=== PATIENT | male | born 1980 | race Caucasian/White ===

== ENCOUNTER 2022-09-22 16:45 | Observation (INO) | payer MEDICAID, SELFPAY ==
[2022-09-22 16:46] VITALS: BP 135/98; PULSE 81; RESP 16; TEMP 36.6; O2SAT 98; BMI 27.0
--- NOTE | 2022-09-22 17:12 | EX.ED.SAOD ---
HPI History of Present Illness Chief Complaint: Substance Abuse Detail of Chief Complaint: Requesting detox for IV fentanyl abuse. Informant: patient Onset/Context/Timing Onset: - (Years.) Context: Gradual Onset Timing: Continuous Current Severity: Mild Maximum Severity: Mild Narrative Narrative: 42-year-old male no seen past medical history other than substance abuse. He does IV fentanyl and also abuses methamphetamine. He has not had detox for at least a year. Denies any recent illness or other past medical history. Prior similar symptoms: Yes Recent Illness/Hospitalization: No PFSH PFS Medical History Anxiety Depression Home Medications buprenorphine HCl 8 mg sublingual tablet 8 mg sublingual TID 09/22/22 [History Last Taken Unknown] gabapentin 800 mg tablet 800 mg PO Q6H 09/22/22 [History Last Taken Unknown] tadalafil 20 mg tablet (Cialis) 10 mg PO DAILY PRN Seizure Activity 09/22/22 [History Last Taken Unknown] Allergy/AdvReac Type Severity Reaction Status Date / Time No Known Allergies Allergy Verified 09/22/22 16:56 Social History Smoking Status: Current every day smoker tobacco type: cigarettes ROS ROS ED ROS Narrative Denies recent illness Review of Systems ROS Unobtainable: Denies due to encephalopathy Constitutional Constitutional ED: Denies chills or fever(s) Eyes Eyes: Denies blurry vision ENT ENT ED: Denies ear pain Cardiovascular Cardiovascular: Denies chest pain Respiratory/Chest Respiratory/Chest: Denies cough or dyspnea Gastrointestinal Gastrointestinal: Denies abdominal pain Genitourinary Genitourinary ED: Denies dysuria Musculoskeletal Musculoskeletal: Denies arthralgias Integumentary Denies abscess or Abrasions Neurologic Neurologic: Denies headache(s) Psychiatric Psychiatric: Denies anxiety Endocrine Endocrinology: Denies cold intolerance Hematologic/Lymphatic Hematologic/Lymphatic: Denies easy bleeding or easy bruising Allergic/Immunologic Allergic/Immunologic ED: Denies mouth swelling or tongue swelling EXAM Physical Exam Narrative Exam Narrative: 42-year-old male no acute distress. Vital signs stable afebrile. He does not look septic toxic or in any distress. H EENT exam unremarkable. Moist weeks membranes. Neck nontender no lymphadenopathy. Lungs clear to auscultation. Heart regular rhythm no murmur rate about 80. Chest wall nontender. Abdomen soft nontender. Back nontender. Moving all 4 extremities. Nontender no edema. No swelling or redness. He does have track greene in his left upper extremity. Nothing that appears infected at this time. No cellulitis nor abscess. Neurologically is awake alert with no focal motor deficits. Const Vital Signs: 09/22/22 16:46 Temperature 97.8 F Temperature Source Temporal Pulse Rate 81 Respiratory Rate 16 Blood Pressure 135/98 H Blood Pressure Mean 110 Pulse Ox 98 Oxygen Delivery Method Room Air Positive well nourished and well developed; Negative for obese, cachectic, contractures or unkempt General Appearance ED: well developed and NAD; Negative for unkempt, cachectic, contractures or pallor Nutritional Appearance: Negative for cachectic or obese HEENT Reports moist mucous membranes; Denies dry mucous membranes atraumatic; Negative for trauma or tenderness Mouth ED: No dry mucous membranes Mouth: No dry mucous membranes Eyes PERRL and EOMs intact bilaterally General Eye ED: Negative for pale conjunctiva or scleral icterus Neck no lymphadenopathy, supple and no JVD Thyroid: Negative for tender or other Lymph Lymphatic: no lymphadenopathy noted; Negative for lymphadenopathy or other Chest Wall inspection of chest normal and palpation of chest normal Chest: Negative for other Resp normal respiratory effort and clear to auscultation bilaterally Effort and Inspection: Negative for retractions Auscultation: Negative for rales, rhonchi or wheezes Cardio regular rate, regular rhythm, S1 normal heart sound, S2 normal heart sound and no murmurs Rate: Negative for bradycardia or tachycardic Rhythm: Negative for abnormal rhythm GI soft to palpation, non-tender, non-distended and no masses Inspection: Negative for abdominal distention Palpation: tender; Negative for guarding Back/Spine no CVA tenderness General Back: Negative for CVA tenderness Cervical Spine: Negative for cervical spine tenderness Thoracic Spine / Upper Back: Negative for thoracic spinal tenderness Lumbar Spine / Lower Back: Negative for lumbar spinal tenderness Coccyx: Negative for swelling Extremity Extremity Narrative: Track greene left arm. No cellulitis. No abscess. Nontender, normal range of motion no swelling. General Extremety ED: Negative for edema or tenderness General Extremity: Negative for edema Neuro oriented x3 and CN's II-XII intact bilaterally Sensorium / Orientation: alert, oriented to person, oriented to place and oriented to time; Negative for confused, lethargic or stuporous Speech: speech normal Motor Exam: strength 5/5 throughout Psych mental status grossly normal and thought process normal Appearance: Negative for unkempt Attitude: No belligerent, No agitated and No aggressive Mood & Affect: Negative for depressed, anxious or tearful Skin General Skin Exam: Negative for jaundice or pallor Lesions: no lesions Rashes: no rashes Trauma: Negative for abrasion MDM MDM MDM Narrative Medical decision making narrative: 42-year-old male requesting detox for IV fentanyl abuse. I spoke to the hospitalist he will be admitted. Screening labs have been obtained. History & Record Review Discussion w/independent historian: Patient Additional record(s) reviewed:: No prior records Lab Data Attestation: I reviewed the patient's lab results. Lab results narrative: CBC unremarkable. White count of 5. H&H 13 and 41. Platelets 220. CMP unremarkable gap of 8 normal BUN and creatinine. Liver enzymes unremarkable. Alcohol negative. Tox screen pending. PT and INR normal. Labs: Laboratory Results - last 24 hr 09/22/22 09/22/22 09/22/22 17:32 17:32 17:32 WBC 5.5 RBC 4.47 L Hgb 13.8 Hct 41.0 MCV 91.7 MCH 30.9 MCHC 33.7 RDW Std Deviation 40.9 RDW Coeff of Homar 12.4 Plt Count 220 MPV 9.0 Immature Gran % (Auto) 0.500 Neut % (Auto) 49.5 Lymph % (Auto) 36.9 [place] % (Auto) 9.1 Eos % (Auto) 3.1 Baso % (Auto) 0.9 Absolute Neuts (auto) 2.7 Absolute Lymphs (auto) 2.02 Nucleated RBC % 0 PT INR Sodium 140 Potassium 4.3 Chloride 106 Carbon Dioxide 26.0 Anion Gap 8 BUN 15 Creatinine 0.78 Estim Creat Clear Calc 120.85 Est GFR (MDRD) Af Amer 138 Est GFR (MDRD) Non-Af 114 BUN/Creatinine Ratio 19.1 Glucose 121 H Calcium 9.1 Total Bilirubin 0.20 AST 28 ALT 40 Alkaline Phosphatase 90 Total Protein 6.8 Albumin 3.7 Globulin 3.1 Albumin/Globulin Ratio 1.2 Ethyl Alcohol 6.0 05/22/23 17:32 WBC RBC Hgb Hct MCV MCH MCHC RDW Std Deviation RDW Coeff of Homar Plt Count MPV Immature Gran % (Auto) Neut % (Auto) Lymph % (Auto) [place] % (Auto) Eos % (Auto) Baso % (Auto) Absolute Neuts (auto) Absolute Lymphs (auto) Nucleated RBC % PT 12.2 INR 0.9 Sodium Potassium Chloride Carbon Dioxide Anion Gap BUN Creatinine Estim Creat Clear Calc Est GFR (MDRD) Af Amer Est GFR (MDRD) Non-Af BUN/Creatinine Ratio Glucose Calcium Total Bilirubin AST ALT Alkaline Phosphatase Total Protein Albumin Globulin Albumin/Globulin Ratio Ethyl Alcohol Discharge Plan Dx/Rx/DC Orders Clinical Impression: Fentanyl use disorder, mild, abuse, Drug abuse, Desire for detoxification Disposition Disposition: Acute Care Hospital [facility] Discharge Date/Time: 09/22/22 18:20
--- NOTE | 2022-09-22 17:13 | HP.PCM.HOS_ITS ---
[facility] - General General Date of Admission: 09/22/22 Date of Service: 09/22/22 Chief Complaint: Acute opioid withdrawal symptoms started today. HPI Narrative CHALINO DWYER, is a 42 M who came to ED for opioid detox. Patient last dose was yesterday night. He smokes 1 or 2 g of fentanyl and sometimes snort. He also smokes methamphetamine. Patient has been using opioids since age of 32. Before he was using IV needles but now for last 2 to 3 years he switched to his smoking/snorting. Patient having withdrawal symptoms anxiety, restlessness, feeling of hot and cold, muscle aches and pain and fidgety. Patient also used to drink alcohol started at age of 10 or 11 but he quit at the age of about 32 years when he started using opioids. He smokes cigarettes a pack per day since age of 10 and 11. He also smokes marijuana. Denies other garcia bstance use including benzodiazepines, ecstasy, bath salt or barbiturates. Past medical history: Patient has history of neuropathy of lower extremities including numbness tingling/paresthesia and is on high-dose of gabapentin 800 mg every 6 hourly. History of schizophrenia probably paranoid schizophrenia and bipolar disorder. Denies diabetes mellitus and hypertension. Social history: No relative. Patient have many friends. Substance use description as mentioned above Family history: Patient's father and mother both were alcoholics. His father also has paranoid schizophrenia. [facility] Medical History Anxiety Depression Home Medications buprenorphine HCl 8 mg sublingual tablet 8 mg sublingual TID 09/22/22 [History Last Taken Unknown] gabapentin 800 mg tablet 800 mg PO Q6H 09/22/22 [History Last Taken Unknown] tadalafil 20 mg tablet (Cialis) 10 mg PO DAILY PRN Seizure Activity 09/22/22 [History Last Taken Unknown] Allergy/AdvReac Type Severity Reaction Status Date / Time No Known Allergies Allergy Verified 09/22/22 16:56 Social History Smoking Status: Current every day smoker tobacco type: cigarettes ROS ROS Narrative Constitutional: Reports mild fatigue and weakness. No fever. HEENT: Reports systems reviewed and no addt'l complaints, except as documented Respiratory/Chest: No acute shortness of breath or respiratory distress or wheezing. CVS: No chest pain/tightness or heaviness. Gastrointestinal: Denies coffee ground emesis, hematemesis or vomiting Genitourinary: Denies burning urination or new urinary tract symptoms Musculoskeletal: Denies acute joint pain or limited range of motion. No acute injury Neurologic: Denies seizure-like symptoms. No acute strokelike symptoms. Psychiatric: No hallucination, delusion or nightmares. skin: No ulcer. No rash Endocrinology: Reports systems reviewed and no addt'l complaints, except as documented Hematologic/Lymphatic: Reports systems reviewed and no addt'l complaints, except as documented Rest 14 ROS are negative except as mentioned in HPI Vital Signs Vital Signs Vital Signs: 09/22/22 16:46 Temperature 97.8 F Temperature Source Temporal Pulse Rate 81 Respiratory Rate 16 Blood Pressure 135/98 H Blood Pressure Mean 110 Pulse Ox 98 Oxygen Delivery Method Room Air Weight Weight: 183 lb Body Mass Index (BMI) 27.0 Physical Exam Narrative General: Alert, Oriented x3, Cooperative HEENT: Atraumatic, PERRLA, EOMI, Normocephalic Oral: Oral mucosa moist. No Gingival or Mucosal Lesions/ Ulcerations Neck: Supple, No JVD, Negative Carotid Bruits Lungs: Air entry diminished in bilateral lung bases. No crepitation/rhonchi Cardiovascular: Regular rate, Regular Rhythm, Normal S1, Normal S2, No murmurs Abdomen: Bowel Sounds Present, Soft, Non Tender, Non-Distended : No renal angle tenderness. No suprapubic tenderness. Extremities: No edema, Capillary Refill Less than 3 Seconds Skin: Needle track greene over upper and lower extremities. Musculoskeletal: No Tenderness to Palpation of Joints or Extremities Neurological: Cranial nerves II-XII grossly intact, DTR 2+/4 and Symmetrical, Neuro grossly intact Psych/Mental Status: Flat affect. Anxiety, more talkative. Assessment & Plan Assessment/Plan (1) Opioid withdrawal delirium, acute, hyperactive: PLAN: Plan This 42-year-old gentleman with history of polysubstance use is being admitted for acute opioid withdrawal syndrome. 1. Acute opioid/fentanyl withdrawal syndrome with history of chronic opioid use disorder, dependence and tolerance: Patient states he never tried to quit opioids. A year ago he was admitted at our facility for opioid detox. He gets withdrawal symptoms when he does not use opioid for 2 to 3 days that happened when he was in custodial. Patient is being admitted to [facility] floor. The patient is started on buprenorphine along with other adjunctive medications as needed for medical stabilization as per order set of opioid withdrawal syndrome.Patient also on trazodone, hydroxyzine, gabapentin as needed ordered. retail manager in training consult. 2. Polysubstance use disorder including methamphetamine, marijuana: Patient quit alcohol in the past about 10 years ago. Advised quitting all substance use. Counseling done. 3. Chronic nicotine use disorder/smoking: Patient on nicotine patch. Advised quitting cigarettes/nicotine use. 4. Possible history of peripheral neuropathy: Patient on gabapentin 800 mg every 6 hourly and held it. Patient on gabapentin as per order set but ordered as scheduled 5. Other psychiatric diagnoses include schizophrenia possible paranoid schizophrenia and bipolar disorder: Patient will need outpatient psychiatric visit. VTE prophylaxis: Low risk. Early ambulation encouraged. Living will/advanced directive/end of life care: Patient does not have living will or advanced directive. He does not have next to kin. Does not have denier power of ip technology transactions attorney for health. After discussion of benefits/risks procedures involved with full code, DNR CC arrest and DNR CC, the patient opted for full code. Patient does want artificial life support including intubation, tube feed, ventilator and/chest compression, central venous catheter, vasopressor and DC shock if needed Total time spent in [id number] encounter in discussion of advanced directive 17 minutes. Charges/Coding Visit Charges Inpatient E&M: 47063 Init Hosp L3 Procedures Hospitalists Procedures: 21402 Advncd Care Plan 30 Min
[2022-09-22 17:45] LABS: Absolute Lymphocyte Count 2.02 X10^3/uL (0.83-4.51); Absolute Neutrophil Count 2.7 X10^3/uL (2.0-7.7); Basophil# 0.05 X10^3/uL; Basophil% 0.9 % (0-1); Eosinophil# 0.17 X10^3/uL; Eosinophils% 3.1 % (0-5); Hemoglobin 13.8 g/dL (13.0-16.5); Lymphocyte # 2.02 X10^3/ul (0.83-4.51); Lymphocyte % 36.9 % (19-41); Mean Corp Hgb Conc 33.7 g/dL (32-36); Mean Corpuscular Hgb 30.9 pg (27.0-32.0); Mean Corpuscular Volume 91.7 fL (80-94); Monocyte% 9.1 % (0-10); NRBC Flagged by Analyzer 0 % (0-5); Neutrophil % 49.5 % (47-70); Platelet Count 220 K/mm3 (150-450); RBC Distribution Width CV 12.4 % (11.6-14.6); RBC Distribution Width SD 40.9 fl (35.1-43.9); Red Blood Count 4.47 M/mm3 (4.6-6.2); White Blood Count 5.5 K/mm3 (4.4-11.0)
[2022-09-22 18:05] LABS: International Normalized Ratio 0.9; Prothrombin Time (Protime)PT. 12.2 SECONDS (11.7-14.9)
[2022-09-22 18:08] VITALS: BP 134/81; PULSE 81; RESP 16; TEMP 36; O2SAT 97
[2022-09-22 18:14] LABS: ALB/GLOB Ratio 1.2 RATIO (0.9-2.4); AST(SGOT) 28 U/L (15-37); Alanine Aminotransfer ALT/SGPT 40 U/L (16-61); Albumin, Serum 3.7 g/dL (3.2-5.0); Alkaline Phosphatase 90 U/L (45-117); Anion Gap 8 (5-15); BUN 15 mg/dL (7-18); BUN/Creat Ratio 19.1 RATIO (10-20); Calcium,Total 9.1 mg/dL (8.5-10.1); Chloride 106 mmol/L (98-107); Creatinine, Serum 0.78 mg/dL (0.70-1.30); EST Glomerular Filtration Rate 114 mL/min (>60); Est Glom Filt Rate - Afr Amer 138 mL/min (>60); Estimated Creatinine Clearance 120.85 ml/min; Globulin 3.1 g/dL (2.2-4.2); Glucose 121 mg/dL (74-106); Potassium 4.3 mmol/L (3.5-5.1); Protein, Total 6.8 g/dL (6.4-8.2); Sodium Level 140 mmol/L (136-145)
[2022-09-22 18:30] VITALS: BMI 25.9
[2022-09-22 18:37] VITALS: BP 125/88; PULSE 66; RESP 16; TEMP 36.4; O2SAT 99
[2022-09-22 18:47] LABS: Amphetamine Urine VISTA POSITIVE (<1000 ng/mL); Barbiturate Urine VISTA NEGATIVE (< 200 ng/mL); Benzodiazepine Urine VISTA NEGATIVE (< 200 ng/mL); Cocaine Urine VISTA POSITIVE (< 300 ng/mL); Ecstacy Urine VISTA POSITIVE (< 500 ng/mL); Methadone Urine VISTA NEGATIVE (< 300 ng/mL); PCP Urine VISTA NEGATIVE (< 25 ng/mL); THC Urine VISTA POSITIVE (< 50 ng/mL); Vista UDS pH Range 6
[2022-09-22 21:54] VITALS: BP 130/72; PULSE 81; RESP 14; TEMP 37.1; O2SAT 95
[2022-09-22] MEDS: Gabapentin 300 MG Capsule PO (22:00)
[2022-09-23 02:58] VITALS: BP 122/85; PULSE 72; RESP 18; TEMP 36.3; O2SAT 96
[2022-09-23 05:46] VITALS: BP 128/89; PULSE 81; RESP 18; TEMP 36.4; O2SAT 96
[2022-09-23] MEDS: Gabapentin 300 MG Capsule PO (05:50)
--- NOTE | 2022-09-23 05:53 | NURSING ---
confirmed meds with pt. pt thinks he last took his meds on September 19 or .
[2022-09-23 09:24] VITALS: BP 138/85; PULSE 73; RESP 18; TEMP 36.4; O2SAT 98
[2022-09-23] MEDS: Buprenorphine HCl 2 MG TAB.SUBL 4 MG SL (10:04)
--- NOTE | 2022-09-23 12:30 | NURSING ---
Patient left the floor. Boxes with tags removed and belongings gone. Did not tell anyone he was leaving. Made aware.
--- NOTE | 2022-09-23 12:32 | NURSING ---
Primary RN came to desk and stated have checked units, pt's room including restrooms. Totes were broken into patients belongings missing and patient not located. backline text sent to dr. colón: 12:31 PM?Charge Nurse [id number] vallecillo broke into his ramp totes and left AMA. Parul [id number]
--- NOTE | 2022-09-23 18:46 | DS.PCM_ITS ---
Providers Date of Admission: 09/22/22 Date of Discharge: 09/23/22 Primary Care Physician: No Primary Care Phys Reason For Visit: ACUTE OPIOID WITHDRAWAL Diagnosis Discharge Diagnosis (1) Opioid withdrawal delirium, acute, hyperactive: Status: Acute Code(s): F11.93 - Opioid use, unspecified with withdrawal Plan 1. Acute opiate withdrawal #2 chronic opiate abuse #3 noncompliance with medical regimen #4 polysubstance abuse Medications at Discharge Home Medications albuterol (refill) 90 mcg/actuation aerosol inhaler 1 - 2 mcg inhalation Q6H PRN PRN asthma 09/22/22 buprenorphine HCl 8 mg sublingual tablet 8 mg sublingual TID 09/22/22 clonazepam 1 mg disintegrating tablet 1 mg PO QODAY PRN mood 09/22/22 gabapentin 800 mg tablet 800 mg PO Q6H 09/22/22 ipratropium 0.5 mg-albuterol 3 mg (2.5 mg base)/3 mL nebulization soln 3 ml inhalation Q4H PRN PRN asthma 09/22/22 tadalafil 20 mg tablet (Cialis) 10 mg PO DAILY PRN Seizure Activity 09/22/22 Hospital Course Operations None Procedures None Summary of Care Provided Minutes Spent on Discharge: 30 Hospital Course: This 42-year-old white male was seen in the emergency room at [facility] desiring services for opiate detox, talk screen was positive for amphetamines, ecstasy, cocaine, and cannabinoids. Patient was admitted to [facility] 3 orders were placed using the opiate detox order set. Patient was seen in consultation with addiction social science research assistant. On 09/23/2022, patient was seen and examined: On examination he appeared anxious and uneasy. Vital signs as documented. Skin warm and dry and without overt rashes. Neck without JVD, neck was supple, trachea midline, thyroid was normal. Lungs clear bilaterally, normal air movement was noted. Heart exam notable for regular rhythm, normal sounds and absence of murmurs, rubs or gallops. Abdomen unremarkable and without evidence of organomegaly, masses, or abdominal aortic enlargement. Bowel sounds are present, abdomen is not distended. Extremities nonedematous, no cyanosis was noted, no clubbing was noted. Neuro: Cranial nerves II through XII are grossly intact, no focal motor deficits were noted, sensation to light touch and pinprick intact, motor exam 5/5 throughout. Psych: Patient is alert and oriented x3, he appeared anxious In the afternoon of 09/23/2022, patient abruptly broke into his belongings locker in his room and stated that he was leaving the hospital AGAINST MEDICAL ADVICE. Weight / BMI Weight Weight: 79.651 kg Body Mass Index (BMI) 25.9 ABG / Lab / Microbiology Data Result Diagrams: 09/22/22 17:32 09/22/22 17:32 Laboratory: Laboratory Results - last 24 hr 09/22/22 18:19: Urine Opiates Screen NEGATIVE, Urine Methadone Screen NEGATIVE, Ur Barbiturates Screen NEGATIVE, Ur Phencyclidine Scrn NEGATIVE, Ur Amphetamines Screen POSITIVE H, MDMA (Ecstasy) Screen POSITIVE H, U Benzodiazepines Scrn NEGATIVE, Urine Cocaine Screen POSITIVE H, U Cannabinoids Screen POSITIVE H Meaningful Use Info Meaningful Use Diagnoses (Choose all that apply): None applicable Discharge Plan Admission Admit Date/Time: 09/22/22 17:13 Attending Provider: Jose Miguel Bartlett Primary Care Provider: Care Physician,Kaylee Primary Consulting Providers: Mitchell Smith Discharge Orders/Prescriptions Prescriptions: No Action gabapentin 800 mg Tablet 800 mg PO Q6H buprenorphine HCl [Subutex] 8 mg Tablet, Sublingual 8 mg SUBLINGUAL TID tadalafil [Cialis] 20 mg Tablet 10 mg PO DAILY PRN (Reason: Seizure Activity) Rx Instructions: administer approximately 30min before sexual activity; do not use more than 1 dose per 24hrs clonazepam [Klonopin] 1 mg Tablet,Disintegrating 1 mg PO QODAY PRN (Reason: mood) ipratropium-albuterol [DuoNeb] 0.5 mg-3 mg(2.5 mg base)/3 mL Solution For Nebulization 3 ml INHALATION Q4H PRN PRN (Reason: asthma) albuterol (refill) 90 mcg/actuation Aerosol 1 - 2 mcg INHALATION Q6H PRN PRN (Reason: asthma) Referrals / Follow Up: Care Physician,No Primary [Primary Care Provider] - NOT,DEFINED [Non-Staff] - Disposition Disposition (needs filled in before D/C Order can be placed): Against Medical Advice Charges/Coding Visit Charges Inpatient E&M: 90945 Disch Hosp
== END 2022-09-23 12:31 | disposition left against medical advice (07) ==
LOC: ED 17:25 → MS3 09-23 06:26
PROVIDERS: Admitting Provider Internal Medicine; Emergency Provider Emergency Medicine; Visit Provider Internal Medicine
DX: F11.23 Opioid dependence with withdrawal (principal); F20.9 Schizophrenia, unspecified; F15.10 Other stimulant abuse, uncomplicated; F19.19 Other psychoactive substance abuse with unspecified psychoactive substance-induced disorder; F17.210 Nicotine dependence, cigarettes, uncomplicated; Z91.199 Patient's noncompliance with other medical treatment and regimen due to unspecified reason; Z79.899 Other long term (current) drug therapy; F41.9 Anxiety disorder, unspecified; F32.A Depression, unspecified
CPT/HCPCS: 80053; 80307; 82077; 85025; 85610; 99283; H0012